=== PATIENT | female | born 1955 | race African-American/Black ===

== ENCOUNTER 2016-06-08 21:17 | Emergency (ER) | payer SELFPAY ==
[~2016-06-08] VITALS: Ht 162.6 cm; Wt 125.0 kg
[~2016-06-08 21:17] MED LIST: FERR325T PO; FLUT1SPR9 EACH NARE; MONT10TA2 PO; TOPR100T15 PO
[2016-06-08 21:19] VITALS: BP 173/88; PULSE 110; RESP 16; TEMP 98.5; O2SAT 96
== END 2016-06-08 23:16 | disposition left against medical advice (07) ==
LOC: NED 21:17
DX: R10.9 Unspecified abdominal pain (principal)
CPT/HCPCS: 99281